=== PATIENT | male | born 1980 | race Native Hawaiian/Other Pacific Islander ===

== ENCOUNTER 2017-12-03 10:17 | Emergency (ER) | payer OTHER ==
[2017-12-03 10:29] VITALS: RESP 18; TEMP 98.3; O2SAT 99; BMI 36.9
--- NOTE | 2017-12-03 11:10 | ED PDOC ---
Arrival/HPI - General Historian: Patient - History of Present Illness Time/Duration: > month Symptom Onset: Gradual Symptom Course: Worsening Quality: Stabbing - General Chief Complaint: Chest Pain Time Seen by Provider: 12/03/17 10:46 - History of Present Illness Narrative History of Present Illness (Text): 12/03/17 10:51 Patient is a 37 year old male with a past medical history of hypertension presenting to the clinic with neck pain x 1 month and chest pain x 3 days. The patient has recently seen his PMD and was prescribed Flexeril 10mg BID for a muscle strain in his neck. He has only take the Flexeril once because it makes him tired and he works a lot. He reports that his neck pain has been worsening and over the past 3 days he started to develop left sided chest pain and left arm numbness associated with his neck pain. Anytime moves his head, flexion/ extension/rotation, he experiences sharp left sided neck pain and it radiates down his left arm and down to the left side of his chest. His chest pain is also worsened with deep inspiration. He was told by his PMD that his neck pain was caused by staring down at his phone/computer as patient denies any trauma or associated symptoms. Denies fevers, chills, nausea, vomiting, diaphoresis, diarrhea, constipation, shortness of breath, abdominal pain, headache, palpitations, lightheadedness or dizziness. PMH: Hypertension Family: "enlarged heart" in 50s - mother and maternal grandmother Social: denies tobacco, social alcohol and denies illicit drug use Allergies: NKDA (Micky Denise) Past Medical History - Provider Review Nursing Documentation Reviewed: Yes Family/Social History - Physician Review Nursing Documentation Reviewed: Yes Family/Social History: Other ("enlarged heart" in 50s - mother and maternal grandmother) Hx Alcohol Use: Yes Frequency of alcohol use: Few days per week Hx Substance Use: No Hx Substance Use Treatment: No Allergies/Home Meds Allergies/Adverse Reactions: Allergies seasonal Allergy (Uncoded 12/03/17 10:51) CONGESTION Home Medications: Home Meds Medication Instructions Recorded Confirmed Cyclobenzaprine [Cyclobenzaprine 10 mg PO PRN 12/03/17 12/03/17 HCl] Metoprolol Succinate [Kapspargo 25 mg PO DAILY 12/03/17 12/03/17 Sprinkle] amLODIPine [Norvasc] 5 mg PO DAILY 12/03/17 12/03/17 Review of Systems - Physician Review All systems were reviewed & negative as marked: Yes - Review of Systems Constitutional: Normal Eyes: Normal ENT: Other (left sided neck pain) Respiratory: Normal. absent: SOB, Cough Cardiovascular: Chest Pain (left sided, radiating from neck). absent: Palpitations, Edema, Calf Pain, BADILLO, Orthopnea, Syncope Gastrointestinal: Normal. absent: Abdominal Pain, Constipation, Diarrhea, Nausea, Vomiting Musculoskeletal: Neck Pain Skin: Normal Neurological: Normal, Other (numbness of left arm radiating down left side of neck). absent: Headache, Dizziness, Focal Weakness, Speech Changes, Disequilibrium Endocrine: Normal. absent: Diaphoresis Hemo/Lymphatic: Normal Psychiatric: Normal Physical Exam Vital Signs Reviewed: Yes Temperature: Afebrile Blood Pressure: Hypertensive Pulse: Regular Respiratory Rate: Normal Appearance: Positive for: Well-Appearing, Non-Toxic, Comfortable Pain Distress: None Mental Status: Positive for: Alert and Oriented X 3 - Systems Exam Head: Present: Atraumatic, Normocephalic Extroacular Muscles: Present: EOMI Conjunctiva: Present: Normal Mouth: Present: Moist Mucous Membranes Nose (External): Present: Atraumatic Nose (Internal): Present: No Active Bleeding, Moist Neck: Present: Paraspinal Tenderness (left sided ), Trachea Midline. No: Normal Range of Motion, Meningeal Signs, MIDLINE TENDERNESS, JVD, Lymphadenopathy Respiratory/Chest: Present: Clear to Auscultation, Good Air Exchange. No: Respiratory Distress, Accessory Muscle Use Cardiovascular: Present: Regular Rate and Rhythm, Normal S1, S2. No: Murmurs Abdomen: No: Tenderness, Distention, Peritoneal Signs Upper Extremity: Present: Normal Inspection, NORMAL PULSES. No: Cyanosis, Edema Lower Extremity: Present: Normal Inspection, NORMAL PULSES. No: Edema, CALF TENDERNESS Neurological: Present: GCS=15, Speech Normal, Motor Func Grossly Intact Skin: Present: Warm, Dry, Normal Color. No: Rashes Lymphatic: No: Cervical Adenopathy Psychiatric: Present: Alert, Oriented x 3, Normal Insight, Normal Concentration Vital Signs Temp Pulse Pulse Resp BP Pulse Ox 12/03/17 12:42 84 18 149/103 H 99 12/03/17 11:23 76 12/03/17 10:29 98.3 F 89 18 141/100 H 99 Medical Decision Making Re-evaluation Time: 13:28 Reassessment Condition: Re-examined, Unchanged - Lab Interpretations I have reviewed the lab results: Yes - RAD Interpretation [employer] Supervisor: ED Physician - EKG Interpretation Interpreted by ED Physician: Yes Type: 12 lead EKG Comparison: No previous EKG avail. ED Course and Treatment: 12/03/17 11:23 Patient is a 37 year old male with a past medical history hypertension presenting with neck pain that radiates down to his left chest and left arm. Patient has been taking flexeril with minimal relief. Patient is in no pain at rest, but is able to reproduce pain with movement of neck. Patient denies any pain medication at this time. Labs, CXR, EKG and CT of C-spine Discussed normal lab results, CXR and EKG with patient. Patient is awaiting on CT. 12/03/17 13:30 Discussed results of normal C-Spine CT with patient. Will discharge patient home with instructions to actually take his Flexeril, which he has a full prescription bottle with him, and to follow up with his primary care physician. Patient agrees and understands. (HowieMicky) 12/03/17 11:48 Patient Seen with Resident: In agreement with resident note which contains more details about the patient. Patient seen and evaluated with resident. Came up with plan and treatment together.. 37 year old male complaining of ceck pain that radiates to left chest and left arm. Labs, CXR, EKG, CT C-spine ordered. 12/03/17 14:27 EKG reviewed, shows NSR at 89 bpm. Incomplete right bundle branch block. ( Terry Guerra) - Lab Interpretations Lab Results: 12/03/17 10:45 12/03/17 10:45 Lab Results 12/03/17 10:45: Sodium 141, Potassium 4.2, Chloride 106, Carbon Dioxide 27, Anion Gap 13, BUN 12, Creatinine 0.8, Est GFR ( Amer) > 60, Est GFR (Non- Af Amer) > 60, Random Glucose 109, Calcium 9.4, Total Bilirubin 0.6, AST 29, ALT 58 H, Alkaline Phosphatase 61, Lactate Dehydrogenase 474, Total Creatine Kinase 233 H, CK-MB (CK-2) 0.9, CK-MB (CK-2) % Cancelled, Troponin I < 0.01, Total Protein 7.6, Albumin 4.6, Globulin 3.0, Albumin/Globulin Ratio 1.5 12/03/17 10:45: WBC 3.5 L, RBC 5.20, Hgb 14.6, Hct 45.1, MCV 86.7, MCH 28.1, MCHC 32.4, RDW 14.3, Plt Count 175, MPV 11.4 H, Gran % 42.1 L, Lymph % (Auto) 46.4 H, Isabella % (Auto) 6.3 H, Eos % (Auto) 4.9, Baso % (Auto) 0.3, Gran # 1.46, Lymph # (Auto) 1.6, Isabella # (Auto) 0.2, Eos # (Auto) 0.2, Baso # (Auto) 0.01 - RAD Interpretation Narrative RAD Interpretations (Text): 12/03/17 12:59 CXR: No acute disease C-Spine CT w/o: IMPRESSION: No acute findings. Disc degeneration at C5-6. (Micky Denise) Radiology Orders: 12/03/17 10:48 CERVICAL SPINE W/O CONTRAST [CT] Stat 12/03/17 10:50 CXR [CHEST PORTABLE] [RAD] Stat - EKG Interpretation EKG Interpretation (Text): 12/03/17 11:27 NSR @89bpm, left axis deviation, incomplete RBBB, no acute ST segment changes - no prior EKG available for comparison. (Micky Denise) - Medication Orders Current Medication Orders: Discontinued Medications Aspirin (Aspirin Chewable) 324 mg PO STAT STA Stop: 12/03/17 10:50 Last Admin: 12/03/17 11:20 Dose: 324 mg Disposition/Present on Arrival - Present on Arrival Any Indicators Present on Arrival: No History of DVT/PE: No History of Uncontrolled Diabetes: No Urinary Catheter: No History of Decub. Ulcer: No - Disposition Have Diagnosis and Disposition been Completed?: Yes Disposition Time: 13:33 Patient Plan: Discharge - Disposition Diagnosis: Impingement syndrome of left shoulder region, Neck muscle strain Disposition: HOME/ ROUTINE Patient Problems: Current Active Problems Problem Status Onset Impingement syndrome of left shoulder region Acute Neck muscle strain Acute Condition: GOOD Discharge Instructions (ExitCare): Cervical Muscle Strain (DC), Shoulder Impingement (DC) Additional Instructions: Patient is to start taking his Flexeril as previously prescribed. He is to follow up with his primary care physician within 2-3 days ago. Forms: [facility] ([place])
[2017-12-03 11:16] LABS: ALB/GLOB RATIO 1.5 (1.1-1.8); ALBUMIN 4.6 g/dL (3.0-4.8); ALT/SGPT 58 U/L (7-56); AST/SGOT 29 U/L (17-59); BASO # 0.01 K/mm3 (0.0-2.0); BASO % 0.3 % (0.0-3.0); BLOOD UREA NITROGEN 12 mg/dL (7-21); CALCIUM 9.4 mg/dL (8.4-10.5); EOS # 0.2 (0.0-0.7); EOS % 4.9 % (1.5-5.0); GFR NON-AFRICAN AMERICAN > 60; GRAN # 1.46 (1.4-6.5); GRAN % 42.1 % (50.0-68.0); HEMOGLOBIN 14.6 g/dL (14.0-18.0); LYMPH # 1.6 (1.2-3.4); LYMPH % 46.4 % (22.0-35.0); MEAN CELL VOLUME 86.7 fl (80.0-105.0); MEAN CORPUSCULAR HEMOGLOBIN 28.1 pg (25.0-35.0); MEAN CORPUSCULAR HGB CONC 32.4 g/dl (31.0-37.0); MEAN PLATELET VOLUME 11.4 fl (7.0-11.0); MONO # 0.2 (0.1-0.6); MONO % 6.3 % (1.0-6.0); RBC 5.2 10^6/uL (3.5-6.1); RED CELL DISTRIBUTION WIDTH 14.3 % (11.5-14.5); WHITE BLOOD COUNT 3.5 10^3/ul (4.5-11.0)
[2017-12-03 11:28] LABS: TROPONIN I < 0.01 ng/mL
[2017-12-03 11:33] LABS: CK-MB 0.9 ng/mL (0.0-3.6)
[2017-12-03 12:43] VITALS: BP 149/103; PULSE 84
--- NOTE | 2017-12-03 13:18 | CT ---
Date of service: 12/03/2017 PROCEDURE: CT Cervical Spine without contrast HISTORY: neck pain x 1 month COMPARISON: None available. TECHNIQUE: Axial computed tomography images were obtained of the cervical spine without the use of intravenous contrast. Coronal and sagittal reformatted images were created and reviewed. Radiation dose: Total exam DLP = 668 mGy-cm. This CT exam was performed using one or more of the following dose reduction techniques: Automated exposure control, adjustment of the mA and/or kV according to patient size, and/or use of iterative reconstruction technique. FINDINGS: VERTEBRAE: No fracture. Normal alignment. No destructive bony lesion. DISCS/SPINAL CANAL/NEURAL FORAMINA: No significant central canal or neural foraminal stenosis. Disc degeneration at C5-6 with an osteophytic ridge. PARASPINAL SOFT TISSUES: Unremarkable. OTHER FINDINGS: None. IMPRESSION: No acute findings. Disc degeneration at C5-6
--- NOTE | 2017-12-03 14:47 | RAD ---
Date of service: 12/03/2017 HISTORY: cp COMPARISON: No prior. FINDINGS: LUNGS: No active pulmonary disease. PLEURA: No significant pleural effusion identified, no pneumothorax apparent. CARDIOVASCULAR: Normal. OSSEOUS STRUCTURES: No significant abnormalities. VISUALIZED UPPER ABDOMEN: Normal. OTHER FINDINGS: None. IMPRESSION: No active disease.
--- NOTE | 2017-12-03 22:02 | CARD ---
APPROVED REPORT Date of service: 12/03/2017 EKG Measurement Heart [id number] <Conclusion> Normal sinus rhythm Incomplete right bundle branch block Moderate voltage criteria for LVH, may be normal variant Borderline ECG
== END 2017-12-03 14:00 | disposition home or self-care (01) ==
LOC: ED 10:17
DX: M75.42 Impingement syndrome of left shoulder (principal); S16.1XXA Strain of muscle, fascia and tendon at neck level, initial encounter; X50.9XXA Other and unspecified overexertion or strenuous movements or postures, initial encounter; Y92.9 Unspecified place or not applicable; I10 Essential (primary) hypertension

== ENCOUNTER 2018-02-27 21:13 | Emergency (ER) | payer OTHER ==
[2018-02-27 21:13] VITALS: BMI 36.9
[2018-02-27 22:19] VITALS: RESP 18; O2SAT 100
[2018-02-27] MEDS ORDERED: Oxycodone/Acetaminophen 5/325 mg Tab PO STA (22:50)
--- NOTE | 2018-02-27 23:19 | ED PDOC ---
Arrival/HPI - General Historian: Patient - History of Present Illness Narrative History of Present Illness (Text): 02/27/18 23:09 37yo male with pmhx of hypertension who present with complaint of left sided upper toothache and swelling. States he had a chip tooth over a week ago and was placed on Amoxicillin . States he finished the antibiotics without relieve. States he started having swelling to the area today. He denies fever,chills, headache, dizziness, any other complaint. <Gisela Pedraza - Last Filed: 02/28/18 00:43> <Esvin Saravia - Last Filed: 02/28/18 01:22> - General Chief Complaint: Dental Pain Time Seen by Provider: 02/27/18 22:20 Past Medical History - Provider Review Nursing Documentation Reviewed: Yes - Infectious Disease Hx of Infectious Diseases: None - Cardiac Hx Cardiac Disorders: Yes Hx Hypertension: Yes - Pulmonary Hx Respiratory Disorders: No - Psychiatric Hx Substance Use: No - Anesthesia Hx Anesthesia: No <Gisela Pedraza - Last Filed: 02/28/18 00:43> Family/Social History - Physician Review Nursing Documentation Reviewed: Yes Family/Social History: Unknown Family HX Smoking Status: Unknown If Ever Smoked Hx Alcohol Use: Yes Hx Substance Use: No Hx Substance Use Treatment: No <Gisela Pedraza - Last Filed: 02/28/18 00:43> Allergies/Home Meds <Gisela Pedraza - Last Filed: 02/28/18 00:43> <Esvin Saravia - Last Filed: 02/28/18 01:22> Allergies/Adverse Reactions: Allergies seasonal Allergy (Uncoded 12/03/17 10:51) CONGESTION Home Medications: Home Meds Medication Instructions Recorded Confirmed Cyclobenzaprine [Cyclobenzaprine 10 mg PO PRN 12/03/17 12/03/17 HCl] Metoprolol Succinate [Kapspargo 25 mg PO DAILY 12/03/17 12/03/17 Sprinkle] amLODIPine [Norvasc] 5 mg PO DAILY 12/03/17 12/03/17 Review of Systems - Physician Review All systems were reviewed & negative as marked: Yes - Review of Systems Constitutional: Normal Eyes: Normal ENT: Other (Toothache) Respiratory: Normal Cardiovascular: Normal Gastrointestinal: Normal Genitourinary Male: Normal Musculoskeletal: Normal Skin: Normal Neurological: Normal Endocrine: Normal Hemo/Lymphatic: Normal Psychiatric: Normal <Gisela Pedraza A - Last Filed: 02/28/18 00:43> Physical Exam Vital Signs Reviewed: Yes Vital Signs Temp Pulse Resp Pulse Ox 02/27/18 22:16 98.6 F 72 18 100 Temperature: Afebrile Blood Pressure: Normal Pulse: Regular Respiratory Rate: Normal Appearance: Positive for: Well-Appearing, Non-Toxic, Comfortable Pain Distress: None Mental Status: Positive for: Alert and Oriented X 3 - Systems Exam Head: Present: Atraumatic, Normocephalic Pupils: Present: PERRL Extroacular Muscles: Present: EOMI Conjunctiva: Present: Normal Mouth: Present: Moist Mucous Membranes, Other (Left sided upper lateral premolar partially avulsed with surrounding gingival swelling and mild over laying cheek swelling) Neck: Present: Normal Range of Motion Respiratory/Chest: Present: Clear to Auscultation, Good Air Exchange. No: Respiratory Distress, Accessory Muscle Use Cardiovascular: Present: Regular Rate and Rhythm, Normal S1, S2. No: Murmurs Abdomen: No: Tenderness, Distention, Peritoneal Signs Back: Present: Normal Inspection Upper Extremity: Present: Normal Inspection. No: Cyanosis, Edema Lower Extremity: Present: Normal Inspection. No: Edema Neurological: Present: GCS=15, CN II-XII Intact, Speech Normal Skin: Present: Warm, Dry, Normal Color. No: Rashes Psychiatric: Present: Alert, Oriented x 3, Normal Insight, Normal Concentration <Gisela Pedraza A - Last Filed: 02/28/18 00:43> Vital Signs Temp Pulse Resp Pulse Ox 02/27/18 22:16 98.6 F 72 18 100 <Esvin Saravia - Last Filed: 02/28/18 01:22> Medical Decision Making ED Course and Treatment: 02/28/18 00:43 PT presented to ED for stated history. He was hemodynamically stable and in no distress in ED. He was treated with Percocet and clindamycin Case was SARAHI Luo, Resident of OM[facility] at [facility]. He states patient should f/u at 060am at Dental emergency clinic - [address] [place] [address] Plan was DW the pt who also states that the who was by the bedside called [facility] while they where in ED and was advised to walk in to the dental clinic. Clinda, percocet and ibuprofen rx was given. - Medication Orders Current Medication Orders: Discontinued Medications Clindamycin HCl (Cleocin) 300 mg PO STAT STA; Protocol Stop: 02/27/18 22:51 Oxycodone/Acetaminophen (Percocet 5/325 Mg Tab) 1 tab PO STAT STA Stop: 02/27/18 22:51 <Gisela Pedraza A - Last Filed: 02/28/18 00:43> - Medication Orders Current Medication Orders: Discontinued Medications Clindamycin HCl (Cleocin) 300 mg PO STAT STA; Protocol Stop: 02/27/18 22:51 Last Admin: 02/27/18 23:16 Dose: 300 mg Oxycodone/Acetaminophen (Percocet 5/325 Mg Tab) 1 tab PO STAT STA Stop: 02/27/18 22:51 Last Admin: 02/27/18 23:16 Dose: 1 tab MAR Pain Assessment Document 02/27/18 23:16 RG (Rec: 02/27/18 23:16 [id number]) Pain Reassessment Is this a pain reassessment? Yes Sleep Is patient sleeping during reassessment? 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 <Esvin Saravia - Last Filed: 02/28/18 01:22> Disposition/Present on Arrival - Present on Arrival Any Indicators Present on Arrival: No History of DVT/PE: No History of Uncontrolled Diabetes: No Urinary Catheter: No History of Decub. Ulcer: No History Surgical Site Infection Following: None - Disposition Have Diagnosis and Disposition been Completed?: Yes Disposition Time: 23:20 Patient Plan: Discharge <Gisela Pedraza A - Last Filed: 02/28/18 00:43> <Esvin Saravia - Last Filed: 02/28/18 01:22> - Disposition Diagnosis: Dental abscess Disposition: HOME/ ROUTINE Patient Problems: Current Active Problems Problem Status Onset Dental abscess Acute Condition: STABLE Discharge Instructions (ExitCare): Tooth Abscess (DC), Dental Pain (DC) Additional Instructions: Follow up with a Dentist Return to ED for any new symptoms Prescriptions: Clindamycin [Cleocin] 300 mg PO TID #21 cap Ibuprofen [Motrin Tab] 600 mg PO Q6 #15 tab oxyCODONE/Acetaminophen [Percocet 5/325 mg Tab] 1 tab PO Q6 #8 tab Referrals: [facility] [Outside] - Follow up with primary [employer] [Outside] - Follow up with primary Forms: [employer] ([place]), WORK NOTE
[2018-02-28 04:50] VITALS: BP 130/76; PULSE 70; TEMP 98.5
== END 2018-02-27 23:40 | disposition home or self-care (01) ==
LOC: ED 21:13
DX: K04.7 Periapical abscess without sinus (principal)